=== PATIENT | female | born 1960 | race Caucasian/White ===

== ENCOUNTER 2018-06-10 17:50 | Emergency (ER) | payer MEDICARE, OTHER ==
[~2018-06-10] VITALS: Ht 160 cm; Wt 42.0 kg
[2018-06-10] MEDS ORDERED: LIDOCAINE-MPF 1%, 2ML ONE (18:10)
[2018-06-10] MEDS ORDERED: LIDOCAINE 2%, 20ML SQ ONE (18:30)
[2018-06-10] MEDS ORDERED: LIDOCAINE-MPF 1%, 5ML ONE (19:19)
[2018-06-10 19:50] VITALS: BP 145/72
[2018-06-10] MEDS ORDERED: BACITRACIN ZINC OINT 500U/GM, 0.9 GM ONE (19:56)
== END 2018-06-10 20:13 | disposition home or self-care (01) ==
LOC: ED 20:07
DX: S06.0X0A Concussion without loss of consciousness, initial encounter (principal); S01.81XA Laceration without foreign body of other part of head, initial encounter; W01.0XXA Fall on same level from slipping, tripping and stumbling without subsequent striking against object, initial encounter; Y93.89 Activity, other specified; Y92.512 Supermarket, store or market as the place of occurrence of the external cause; Y99.8 Other external cause status
CPT/HCPCS: 12032; 70450; 99284

== ENCOUNTER 2019-01-31 00:11 | Emergency (ER) | payer MEDICARE, OTHER ==
[~2019-01-31] VITALS: Ht 167.6 cm; Wt 56.8 kg
[2019-01-31 00:12] VITALS: BP 108/68
--- NOTE | 2019-01-31 00:20 | NUR ---
PT BIB [facility] AFTER [facility], HIT HEAD ON CURB. PT REPORTS FREQUENT FALLS. NOT ON BLOOD THINNERS. A&OX4 UPON ARRIVAL TO ED. C/O HEAD PAIN 3/10. HEMATOMA AND SMALL LAC TO R SIDE HEAD. NO ACTIVE BLEEDING.
== END 2019-01-31 02:15 | disposition home or self-care (01) ==
LOC: ED 02:04
DX: S01.81XA Laceration without foreign body of other part of head, initial encounter (principal); S06.310A Contusion and laceration of right cerebrum without loss of consciousness, initial encounter; S01.01XA Laceration without foreign body of scalp, initial encounter; W01.0XXA Fall on same level from slipping, tripping and stumbling without subsequent striking against object, initial encounter; Y93.89 Activity, other specified; Y92.410 Unspecified street and highway as the place of occurrence of the external cause; Y99.8 Other external cause status
CPT/HCPCS: 12051; 70450; 72125; 99284

== ENCOUNTER 2021-03-14 20:42 | Emergency (ER) | payer MEDICARE, OTHER ==
[~2021-03-14] VITALS: Ht 167.6 cm; Wt 60.0 kg
--- NOTE | 2021-03-14 22:27 | NUR ---
mitchell from home for [facility] walking to mailbox. hematoma noted to back of head, no other trauma/pain noted. deidre ya at bedside for eval
--- NOTE | 2021-03-14 22:27 | NUR ---
pt to radiology
[2021-03-14 23:54] VITALS: BP 138/87
--- NOTE | 2021-03-14 23:54 | NUR ---
report taken from Break RN, pt resting in bed, arleth desouza. awaiting CT read and dispo
--- NOTE | 2021-03-15 01:08 | NUR ---
PT EDUCATED ON DC INSTRUCTIONS, VERBALIZED UNDERSTANDING. AMBULATORY TO DC DESK WITH STEADY GAIT, NADN.
== END 2021-03-15 01:13 | disposition home or self-care (01) ==
LOC: ED 22:00
DX: S09.90XA Unspecified injury of head, initial encounter (principal); M54.2 Cervicalgia; F17.200 Nicotine dependence, unspecified, uncomplicated; W01.0XXA Fall on same level from slipping, tripping and stumbling without subsequent striking against object, initial encounter; Y93.89 Activity, other specified; Y92.009 Unspecified place in unspecified non-institutional (private) residence as the place of occurrence of the external cause; Y99.8 Other external cause status
CPT/HCPCS: 70450; 99284